=== PATIENT | female | born 1995 | race Caucasian/White ===

== ENCOUNTER 2016-05-16 17:41 | Emergency (ER) | payer OTHER ==
--- NOTE | ~2016-05-16 | CR21 ---
[facility] A Service of [facility] & [facility] RADIOLOGY TEXT RESULTS PATIENT: KORIN BUCK LOCATION: CFTX : [birth year] UNIT #: [id number] AGE: [address]: Estephanie Pickens SEX: F ORDER DR: [id number] [facility] [address] [place], [place] [address] [id number] E MR#: [id number] Acc #: [id number] NAME: KORIN BUCK : 1995 SEX: F STUDY DATE/TIME: 05/16/2016 17:17 UNIT: [facility] ROOM: STUDY DESCRIPTION: CR Ankle Min 3 Views Rt Attending Physician: Estephanie Pickens P.A.-C. Ordering Physician: Estephanie Pickens P.A.-C. Primary Care Physician: Martha Conn Aprn MEDICAL IMAGING REPORT This report is preliminary unless electronic signature is present EXAM Right ankle 3 views 05/16/2016 HISTORY Right ankle pain and swelling status post fall down steps on 05/16/2016. FINDINGS AP, lateral, and oblique projections of the ankle show satisfactory integrity of the joint mortise with a smooth articular surface. There is no identifiable fracture, dislocation, or radiopaque foreign body. IMPRESSION Normal ankle. Dictated by... Efrain Buck M.D. THIS IS AN ELECTRONICALLY VERIFIED REPORT Efrain Buck M.D. at 05/18/2016 8:18 AM KAYLA/brad TD: 05/16/2016 22:47 JOB #: [id number] MEDICAL IMAGING REPORT Page 1 of 1 COPY
--- NOTE | ~2016-05-16 | CR127 ---
[facility] A Service of [facility] & [facility] RADIOLOGY TEXT RESULTS PATIENT: KORIN BUCK LOCATION: CFTX : [birth year] UNIT #: [id number] AGE: [address]: Estephanie Pickens SEX: F ORDER DR: [id number] [facility] [address] [place], [place] [address] [id number] E MR#: [id number] Acc #: [id number] NAME: KORIN BUCK : 1995 SEX: F STUDY DATE/TIME: 05/16/2016 17:18 UNIT: [facility] ROOM: STUDY DESCRIPTION: CR Foot Complete Min 3 View Rt Attending Physician: Estephanie Pickens P.A.-C. Ordering Physician: Estephanie Pickens P.A.-C. Primary Care Physician: Martha Conn Aprn MEDICAL IMAGING REPORT This report is preliminary unless electronic signature is present EXAM Right foot 3 views, 05/16/2016 HISTORY Right foot pain and swelling status post fall down steps today. FINDINGS The tarsal, metatarsal, and phalangeal elements are all anatomically normal in position and alignment. There are no articular defects. No fractures or radiopaque foreign bodies in the soft tissues are apparent. IMPRESSION Normal foot. Dictated by... Efrain Buck M.D. THIS IS AN ELECTRONICALLY VERIFIED REPORT Efrain Buck M.D. at 05/18/2016 8:18 AM KRT/momo TD: 05/16/2016 22:59 JOB #: [id number] MEDICAL IMAGING REPORT Page 1 of 1 COPY
== END 2016-05-16 18:33 | disposition home or self-care (01) ==
LOC: CFTX 17:41
DX: S93.411A Sprain of calcaneofibular ligament of right ankle, initial encounter (principal); S93.611A Sprain of tarsal ligament of right foot, initial encounter; W22.8XXA Striking against or struck by other objects, initial encounter; Y92.098 Other place in other non-institutional residence as the place of occurrence of the external cause
CPT/HCPCS: 29515; 73610; 73630; 99283